=== PATIENT | male | born 1985 | race African-American/Black ===

== ENCOUNTER 2020-05-05 15:00 | Emergency (ER) | payer OTHER ==
[~2020-05-05] VITALS: Ht 188 cm; Wt 88.5 kg
[2020-05-05] MEDS ORDERED: HYDROcodone-ACET 5/325MG TAB PO ONE ×2 (16:45→18:15)
[2020-05-05 21:30] VITALS: BP 143/94
== END 2020-05-05 22:51 | disposition home or self-care (01) ==
LOC: ER 15:00
DX: S43.001A Unspecified subluxation of right shoulder joint, initial encounter (principal); S49.91XA Unspecified injury of right shoulder and upper arm, initial encounter; W17.89XA Other fall from one level to another, initial encounter; Y93.89 Activity, other specified; Y92.89 Other specified places as the place of occurrence of the external cause; Y99.8 Other external cause status
CPT/HCPCS: 29105; 73030